=== PATIENT | female | born 1995 | race Caucasian/White ===

== ENCOUNTER 2022-08-09 16:39 | Emergency (ER) | payer MEDICAID ==
[2022-08-09] MEDS ORDERED: Cetirizine 10 MG Tab PO ONE (17:57)
== END 2022-08-09 18:23 | disposition home or self-care (01) ==
LOC: JP.ED 16:39
DX: L50.9 Urticaria, unspecified (principal); Z88.5 Allergy status to narcotic agent; Z88.8 Allergy status to other drugs, medicaments and biological substances
CPT/HCPCS: 99283; A9270

== ENCOUNTER 2023-01-06 21:03 | Emergency (ER) | payer MEDICAID | END 2023-01-06 22:18 | disposition home or self-care (01) | LOC: JP.ED 21:03 | DX: L60.0 Ingrowing nail (principal); Z88.8 Allergy status to other drugs, medicaments and biological substances; Z91.018 Allergy to other foods | CPT/HCPCS: 99283 ==

== ENCOUNTER 2025-01-24 21:40 | Emergency (ER) | payer MEDICAID | END 2025-01-25 00:59 | disposition home or self-care (01) | LOC: JP.ED 21:40 | DX: H57.04 Mydriasis (principal); H30.92 Unspecified chorioretinal inflammation, left eye; Z88.5 Allergy status to narcotic agent; Z88.8 Allergy status to other drugs, medicaments and biological substances | CPT/HCPCS: 99283 ==